=== PATIENT | female | born 1955 | race Caucasian/White ===

== ENCOUNTER → 2016-08-23 | Outpatient (CLI) | payer BC ==
[2016-08-23 09:37] LABS: BASOPHILS PERCENT AUTO 0.9 % (0.2-1.2); HEMATOCRIT 37.1 % (33.0-47.0); HEMOGLOBIN 12.5 g/dL (12.0-16.0); LYMPHOCYTES PERCENT AUTO 40.8 % (25.0-50.0); MEAN CORPUSCULAR HGB CONC 33.7 g/dL (32.0-36.0); MEAN CORPUSCULAR VOLUME 83.2 fL (78.0-93.0); MONOCYTES PERCENT AUTO 7.2 % (2.0-11.0); NEUTROPHILS PERCENT AUTO 48.1 % (50.0-80.0); RDW CV 14.9 % (10.0-15.0); RED BLOOD CELL COUNT 4.46 x10^6/uL (4.00-5.50)
[2016-08-23 09:51] LABS: HEMOGLOBIN A1C 7.2 % (4.5-6.2)
[2016-08-23 09:53] LABS: CALCIUM 8.7 mg/dL (8.5-10.1); CHLORIDE,CL 100 mmol/L (98-107); CHOLESTEROL HDL 56 mg/dL (40-59); CHOLESTEROL LDL CALCULATED 113 mg/dL (0-130); CREATININE 0.7 mg/dL (0.55-1.02); EST CRCL DRUG DOSING (CG) 74.72 mL/min; ESTIMATED GFR > 60; GLUCOSE RANDOM 156 mg/dL (74-106); TRIGLYCERIDES 186 mg/dL (0-149)
== END ==
LOC: VM.LAB 09:17
PROVIDERS: ATTEND Internal Medicine
DX: E11.9 Type 2 diabetes mellitus without complications (principal)
CPT/HCPCS: 36415; 80048; 80061; 83036; 85025

== ENCOUNTER 2020-04-22 06:48 | Day surgery (SDC) | payer BC, OTHER ==
[~2020-04-22 06:48] MED LIST: Lactated Ringers 1,000 ML IV SCH
[2020-04-22] MEDS ORDERED: Dexamethasone 10 MG/ML SDV ONE (08:02)
[2020-04-22] MEDS ORDERED: Ondansetron 4 MG/2 ML SDV ONE (08:02)
[2020-04-22] MEDS ORDERED: fentaNYL 100 MCG/2 ML SDV ONE (08:02)
[2020-04-22] MEDS ORDERED: Propofol 200 MG/20 ML SDV ONE ×2 (08:02→09:27)
[2020-04-22 09:59] VITALS: PULSE 66
[2020-04-22 10:08] VITALS: BP 117/67
--- NOTE | 2020-04-22 12:20 | OR ---
PRE-OPERATIVE DIAGNOSES: 1. Positive Cologuard stool test. 2. Positive family history of colon cancer in 2 maternal aunts. The patient's last colonoscopy was about 7 years ago. POST-OPERATIVE DIAGNOSES: 1. 2 mm polyp at 80 cm removed with cold forceps. 2. Somewhat tortuous colon, mostly obtaining entry to the cecum, but was able to eventually obtain cecal intubation and cecum was normal in appearance. 3. Moderate left-sided diverticulosis. 4. Mild hemorrhoids. PROCEDURE: Colonoscopy with polypectomy x1 using cold forceps. SURGEON: Clement Rivera M.D. ANESTHESIA: Monitored anesthesia care. BOWEL PREP: Good. DESCRIPTION OF PROCEDURE: Jessica is a 64-year-old female who was brought to the endoscopy suite after discussing risks and benefits of the procedure. Informed consent was obtained for conscious sedation and colonoscopy with or without biopsy and/or polypectomy. We also discussed possibility of missed lesions. Pre-procedure exam was unremarkable. IV, oxygen, and monitors were placed. The patient was placed in the left lateral decubitus position. Sedation was administered and a rectal exam performed and unremarkable. Colonoscope was passed into the rectum and slowly advanced all the way to the cecum. Cecum was viewed and photographed. The colonoscope was slowly withdrawn and the mucosa was closed observed in a direct circumferential manner. The ascending colon revealed a 2 mm polyp at 80 cm removed with cold forceps. Transverse colon unremarkable. The descending and sigmoid colon were remarkable for moderate diverticulosis. Retroflexion was performed. Rectal mucosa revealed some mild hemorrhoids. Scope was removed. The patient tolerated the procedure well. The patient was monitored until that baseline status. Discharge instructions were reviewed and the patient was discharged in good condition. COMPLICATIONS: None. TOTAL TIME: 30 minutes. ESTIMATED BLOOD LOSS: Less than 1 mL. RECOMMENDATIONS/FOLLOW-UP: We will await results of path report to determine ideal followup interval. I would like to kindly thank Dr. Eva Castellano for this referral. DMB: 04/22/2020 11:08:30 MODL: 04/22/2020 12:09:43 /[id number]
== END 2020-04-22 11:04 | disposition home or self-care (01) ==
LOC: VM.SDS 06:48
PROVIDERS: ATTEND Family Medicine
DX: D12.2 Benign neoplasm of ascending colon (principal); K57.30 Diverticulosis of large intestine without perforation or abscess without bleeding; K64.9 Unspecified hemorrhoids; Q43.8 Other specified congenital malformations of intestine; I10 Essential (primary) hypertension; G47.33 Obstructive sleep apnea (adult) (pediatric); M85.80 Other specified disorders of bone density and structure, unspecified site; E11.40 Type 2 diabetes mellitus with diabetic neuropathy, unspecified; E78.5 Hyperlipidemia, unspecified; E78.00 Pure hypercholesterolemia, unspecified; K21.9 Gastro-esophageal reflux disease without esophagitis; E78.1 Pure hyperglyceridemia; Z79.84 Long term (current) use of oral hypoglycemic drugs; Z79.82 Long term (current) use of aspirin; Z88.2 Allergy status to sulfonamides; Z88.5 Allergy status to narcotic agent; Z88.1 Allergy status to other antibiotic agents; Z88.8 Allergy status to other drugs, medicaments and biological substances; Z79.899 Other long term (current) drug therapy; Z20.828 Contact with and (suspected) exposure to other viral communicable diseases
CPT/HCPCS: 45380; 82962; 87635; J1100; J2405; J2704; J3010; J7120; 00811; U0002

== ENCOUNTER 2021-07-28 00:30 | Inpatient (IN) | payer BC ==
[2021-07-28] MEDS ORDERED: EPINEPHrine 1 MG/1 ML Amp IM ONE ×2 (00:40→03:59)
[2021-07-28] MEDS ORDERED: methylPREDNISolone Sodium Succinate 125 MG/2 ML SDV ONE (00:45)
[2021-07-28] MEDS ORDERED: Sodium Chloride 0.9% 1,000 ML IV ONE ×3 (00:48→00:57)
[2021-07-28] MEDS ORDERED: methylPREDNISolone Sodium Succinate 125 MG/2 ML SDV IVPUSH ONE (00:56)
[2021-07-28] MEDS ORDERED: Famotidine 20 MG/2 ML SDV IVPUSH ONE (00:57)
[2021-07-28] MEDS ORDERED: Albuterol 0.083% 2.5 MG/3 ML Neb Soln NEB ONE (00:57)
[2021-07-28] MEDS ORDERED: Lactated Ringers 1,000 ML IV ONE (00:57)
[2021-07-28] MEDS ORDERED: Sodium Chloride 0.9% 10 ML Syringe FLUSH PRN (00:59)
[2021-07-28] MEDS ORDERED: diphenhydrAMINE 50 MG/ML SDV IVPUSH ONE ×2 (01:01→01:05)
[2021-07-28] MEDS ORDERED: Sodium Chloride 0.9% 1,000 ML IV SCH (01:05)
[2021-07-28] MEDS ORDERED: Ondansetron 4 MG/2 ML SDV IV ONE (01:08)
[2021-07-28 01:45] LABS: CHLORIDE,CL 104 mmol/L (98-107); SODIUM,NA 139 mmol/L (136-145)
[2021-07-28 01:51] LABS: ANION GAP 20.4 mmol/L (5-15)
[2021-07-28 01:53] LABS: PTT,PARTIAL THROMBOPLSTIN TIME 22.5 SEC (25.6-32.8)
[2021-07-28] MEDS ORDERED: Potassium Chloride Riders 10 MEQ in Premix Bag 1 BAG IV ONE ×2 (02:15→03:40)
--- NOTE | 2021-07-28 02:25 | EDM.PDOC ---
ED HPI GENERAL MEDICAL PROBLEM - General Chief Complaint: General Stated Complaint: Hives, anaphylactic shock Time Seen by Provider: 07/28/21 00:45 Source of Information: Reports: Patient History Limitations: Reports: No Limitations - History of Present Illness INITIAL COMMENTS - FREE TEXT/NARRATIVE: Patient comes emergency department today from home by ambulance with concerns of allergic reaction. The patient approximately 24 hours ago had some hives developed at home. She had taken some Benadryl with resolution. It is not uncommon for her over the past couple years to have some breakthrough hives on a regular basis. The only new medication that she has started tried or been exposed to is been Pepto-Bismol as she has had quite a bit of diarrhea over the past few days. She is currently taking care of her grandson who has Covid. She has not had any fever or chills. She did have a almost syncopal episode in the ambulance. She was noted to be quite hypotensive. She was given subcu epinephrine 0.5 mg prior to arrival. She was brought here urgently by ambulance with concerns of anaphylaxis. Upon arrival the patient is alert anxious. She denies any shortness of breath or difficulty breathing. But she is unable to control her shaking. She is itching quite extensively. She has no chest pain. She is complaint of nausea and vomiting. Treatments PROJECT LANDSCAPE ARCHITECT: Reports: IV/IO, Other (see below) Other Treatments PROJECT LANDSCAPE ARCHITECT: EPI, Zofran, Benadryl per EMS - Related Data Allergies Allergy/AdvReac Type Severity Reaction Status Date / Time bismuth subsalicylate Allergy Severe Anaphylactic Verified 07/28/21 08:32 [From Pepto-Bismol] Shock loperamide [From Imodium A-D] Allergy Severe Hives Verified 07/28/21 02:12 doxycycline Allergy Rash Verified 07/28/21 02:12 Sulfa (Sulfonamide Allergy Rash Verified 07/28/21 02:12 Antibiotics) codeine AdvReac Vomiting Verified 07/28/21 02:12 propoxyphene napsylate AdvReac Vomiting Verified 07/28/21 02:12 [From Darvocet-N] Home Meds: Home Meds Aspirin [Mark Chewable] 81 mg PO DAILY 11/21/14 [History] Lisinopril 5 mg PO DAILY 11/21/14 [History] Potassium Gluconate 595 mg PO DAILY 11/21/14 [History] Pravastatin [Pravachol] 10 mg PO BEDTIME 11/21/14 [History] hydroCHLOROthiazide [Hydrochlorothiazide] 12.5 mg PO DAILY 11/21/14 [History] metFORMIN HCl [Metformin HCl] 1,000 mg PO BID 11/21/14 [History] Calcium Carbonate [Calcium] 600 mg PO DAILY 08/01/16 [History] Cyclobenzaprine [Flexeril] 10 mg PO TID PRN 04/14/20 [History] Famotidine [Pepcid] 10 mg PO ASDIRECTED PRN 04/14/20 [History] Omeprazole 20 mg PO DAILY 04/14/20 [History] Empagliflozin [Jardiance] 25 mg PO DAILY 07/28/21 [History] Levothyroxine Sodium [Synthroid] 50 mcg PO BEDTIME 07/28/21 [History] Non-Formulary Medication [NF Drug] 1 spray .XX DAILY 07/28/21 [History] Semaglutide [Rybelsus] 7 mg PO ACBREAKFAST 07/28/21 [History] Past Medical History HEENT History: Reports: Sinusitis Cardiovascular History: Reports: High Cholesterol, Hypertension Respiratory History: Reports: Sleep Apnea Gastrointestinal History: Reports: GERD Other Gastrointestinal History: c diff Other Genitourinary History: cystitis Musculoskeletal History: Reports: Back Pain, Chronic Other Musculoskeletal History: osteopenia. planter fasciitis of left foot Endocrine/Metabolic History: Reports: Diabetes, Type II - Infectious Disease History Infectious Disease History: Reports: C-Difficile - Past Surgical History HEENT Surgical History: Reports: Adenoidectomy, Tonsillectomy Other Female Surgeries/Procedures: colposcopy with endo curette Social & Family History - Family History Cardiac: Reports: Bypass, Heart Valve Replacement, High Cholesterol, Hypertension, MD ED ROS GENERAL - Review of Systems Review Of Systems: Comprehensive ROS is negative, except as noted in HPI. ED EXAM, GENERAL - Physical Exam Exam: See Below Free Text/Narrative:: Upon arrival the patient is in extremis. She is anxious. She is shaking uncontrollably. She is profusely diaphoretic. She is covered in hives head to toe. She has some nonblanching flat purpura/purple coloring to her hands bilaterally on the distal tips of pretty much all her fingers more on the left than the right. Exam Limited By: No Limitations General Appearance: Severe Distress Eye Exam: Bilateral Eye: EOMI Ears: Normal External Exam Nose: Normal Inspection Throat/Mouth: Normal Inspection (There is no rash or discoloration inside the oropharynx. There is no swelling of the tongue. There is no stridor. Her lips are not swollen.), Normal Lips Head: Atraumatic, Normocephalic Neck: Normal Inspection, Supple, Non-Tender Respiratory/Chest: No Respiratory Distress, Lungs Clear, Normal Breath Sounds, No Accessory Muscle Use, Chest Non-Tender Cardiovascular: Normal Peripheral Pulses, Regular Rate, Rhythm, Tachycardia Peripheral Pulses: 1+: Brachial (L), Brachial (R), Femoral (L), Femoral (R) GI/Abdominal: Normal Bowel Sounds, Soft (Female) Exam: Deferred Rectal (Female) Exam: Deferred Back Exam: Normal Inspection Extremities: No: Normal Inspection (She is covered head to toe and hives that are confluent. She has purpling/purpura nonblanching of her fingers of her hands. She has weak peripheral pulses. She is profusely diaphoretic), Normal Capillary Refill (Her cap refill is at about 6 seconds) Neurological: Alert, Oriented Psychiatric: Anxious Skin Exam: Cool, Diaphoretic, Rash (Hives as above) Course - Vital Signs Last Recorded V/S: Last Vital Signs Temp 98.8 F 07/28/21 18:00 Pulse 86 07/28/21 18:00 Resp 20 07/28/21 18:00 BP 96/49 L 07/28/21 18:00 Pulse Ox 97 07/28/21 18:00 - Orders/Labs/Meds Orders: Active Orders 24 hr Category Date Time Status Patient Status [ADT] Routine ADT 07/28/21 02:07 Active RT Aerosol Therapy [RC] .PRN Care 07/28/21 00:57 Active Sodium Chloride 0.9% [Saline Flush] Med 07/28/21 00:59 Active 10 ml FLUSH ASDIRECTED PRN Peripheral IV Insertion Adult [OM.PC] Stat Oth 07/28/21 00:59 Ordered Medication Orders Aspirin (Aspirin 81 Mg Tab.Chew) 81 mg PO DAILY SURESH Last Admin: 07/28/21 08:41 Dose: 81 mg Documented by: SARTHAK Calcium Carbonate/Glycine (Calcium Carbonate 750 Mg Tab.Chew) 600 mg PO DAILY [facility] Last Admin: 07/28/21 08:43 Dose: 600 mg Documented by: SARTHAK Cyclobenzaprine HCl (Cyclobenzaprine 10 Mg Tab) 10 mg PO TID PRN PRN Reason: Muscle Spasm - Painful Dextrose/Water (50% Dextrose In Water 50 Ml Syringe) 50 ml IVPUSH ASDIRECTED PRN PRN Reason: Hypoglycemia Diphenhydramine HCl (Diphenhydramine 50 Mg/Ml Sdv) 25 mg IVPUSH Q4H PRN PRN Reason: Rash Last Admin: 07/28/21 07:11 Dose: 25 mg Documented by: SABRA Enoxaparin Sodium (Enoxaparin 40 Mg/0.4 Ml Syringe) 40 mg SUBCUT Q24H [facility] Epinephrine HCl (Epinephrine 1 Mg/1 Ml Amp) 0.3 mg IM ONETIME PRN PRN Reason: Other Famotidine (Famotidine 20 Mg/2 Ml Sdv) 20 mg IVPUSH DAILY [facility] Last Admin: 07/28/21 08:40 Dose: 20 mg Documented by: SARTHAK Glucagon (Glucagon,Human Recombinant 1 Mg Vial) 1 mg IM ASDIRECTED PRN PRN Reason: Hypoglycemia Insulin Human Lispro (Insulin Lispro 100 Units/Ml 3 Ml Vial) 5 unit SUBCUT TIDMEALS [facility] Last Admin: 07/28/21 12:23 Dose: Not Given Documented by: SARTHAK Levothyroxine Sodium (Levothyroxine 25 Mcg Tab) 50 mcg PO BEDTIME [facility] Lisinopril (Lisinopril 10 Mg Tab) 5 mg PO DAILY [facility] Last Admin: 07/28/21 08:42 Dose: 5 mg Documented by: SARTHAK Omeprazole (Omeprazole 20 Mg Cap.Cr) 20 mg PO DAILY [facility] Last Admin: 07/28/21 08:41 Dose: 20 mg Documented by: SARTHAK Ondansetron HCl (Ondansetron 4 Mg/2 Ml Sdv) 4 mg IV Q6H PRN PRN Reason: Nausea/Vomiting Potassium Chloride (Potassium Chloride 10 Meq Tab.Er) 20 meq PO WITHBREAKFAST [facility] Last Admin: 07/28/21 12:22 Dose: 20 meq Documented by: SARTHAK Pravastatin Sodium (Pravastatin 20 Mg Tab) 10 mg PO BEDTIME [facility] Sodium Chloride (Sodium Chloride 0.9% 10 Ml Syringe) 10 ml FLUSH ASDIRECTED PRN PRN Reason: Keep Vein Open Labs: Laboratory Tests 07/28/21 07/28/21 07/28/21 Range/Units 01:19 01:19 01:19 WBC 26.7 H* (4.0-10.0) x10^3/uL RBC 5.01 (4.00-5.50) x10^6/uL Hgb 13.9 (12.0-16.0) g/dL Hct 43.0 (33.0-47.0) % MCV 85.8 (78.0-93.0) fL MCH 27.7 (26.0-32.0) pg MCHC 32.3 (32.0-36.0) g/dL RDW Coeff of Yaw 14.9 (10.0-15.0) % Plt Count 320 (130-400) x10^3/uL Add Manual Diff Yes Neutrophils % (Manual) 45 L (50-80) % Band Neutrophils % 10 H (0-6) % Lymphocytes % (Manual) 14 L (25-50) % Reactive Lymphs % 21 H (0) % Monocytes % (Manual) 5 (2-11) % Eosinophils % (Manual) 4 (0-4) % Metamyelocytes % 1 H (0) % Immature Gran # 0.27 H (0.00-0.07) X10^3/Ul Absolute Neutrophils 14.7 H (1.8-7.7) x10^3/uL Lymphocytes # (Manual) 9.3 H (1.0-4.8) x10^3/uL Monocytes # (Manual) 1.3 H (0.0-0.8) x10^3/uL Eosinophils # (Manual) 1.1 H (0.0-0.5) x10^3/uL Vacuolated Neuts Rare Toxic Granulation 1+ slight H Platelet Estimate Adequate PT 12.9 H (9.9-12.5) SEC INR 1.2 L (2.0-3.5) APTT 22.5 L (25.6-32.8) SEC Sodium (136-145) mmol/L Potassium (3.5-5.1) mmol/L Chloride (98-107) mmol/L Carbon Dioxide (21-32) mmol/L Anion Gap (5-15) mmol/L BUN (7-18) mg/dL Creatinine (0.55-1.02) mg/dL Est Cr Clr Drug Dosing Estimated GFR (MDRD) Glucose (70-99) mg/dL Lactic Acid (0.4-2.0) mmol/L Calcium (8.5-10.1) mg/dL Corrected Calcium (8.5-10.1) mg/dL Magnesium (1.8-2.4) mg/dL Total Bilirubin (0.2-1.0) mg/dL AST (15-37) U/L ALT (14-59) U/L Alkaline Phosphatase (46-116) U/L C-Reactive Protein (<=0.9) mg/dL Total Protein (6.4-8.2) g/dL Albumin (3.4-5.0) g/dL Globulin Albumin/Globulin Ratio SARS CoV-2 RNA Rapid RK Negative (NEGATIVE) 07/28/21 07/28/21 Range/Units 01:19 01:19 WBC (4.0-10.0) x10^3/uL RBC (4.00-5.50) x10^6/uL Hgb (12.0-16.0) g/dL Hct (33.0-47.0) % MCV (78.0-93.0) fL MCH (26.0-32.0) pg MCHC (32.0-36.0) g/dL RDW Coeff of Yaw (10.0-15.0) % Plt Count (130-400) x10^3/uL Add Manual Diff Neutrophils % (Manual) (50-80) % Band Neutrophils % (0-6) % Lymphocytes % (Manual) (25-50) % Reactive Lymphs % (0) % Monocytes % (Manual) (2-11) % Eosinophils % (Manual) (0-4) % Metamyelocytes % (0) % Immature Gran # (0.00-0.07) X10^3/Ul Absolute Neutrophils (1.8-7.7) x10^3/uL Lymphocytes # (Manual) (1.0-4.8) x10^3/uL Monocytes # (Manual) (0.0-0.8) x10^3/uL Eosinophils # (Manual) (0.0-0.5) x10^3/uL Vacuolated Neuts Toxic Granulation Platelet Estimate PT (9.9-12.5) SEC INR (2.0-3.5) APTT (25.6-32.8) SEC Sodium 139 (136-145) mmol/L Potassium 2.4 L* D (3.5-5.1) mmol/L Chloride 104 (98-107) mmol/L Carbon Dioxide 17 L D (21-32) mmol/L Anion Gap 20.4 H (5-15) mmol/L BUN 21 H (7-18) mg/dL Creatinine 1.0 (0.55-1.02) mg/dL Est Cr Clr Drug Dosing TNP Estimated GFR (MDRD) 56 Glucose 324 H (70-99) mg/dL Lactic Acid 7.2 H* (0.4-2.0) mmol/L Calcium 6.5 L* D (8.5-10.1) mg/dL Corrected Calcium 7.9 L D (8.5-10.1) mg/dL Magnesium 1.5 L (1.8-2.4) mg/dL Total Bilirubin 0.5 (0.2-1.0) mg/dL AST 19 (15-37) U/L ALT 30 (14-59) U/L Alkaline Phosphatase 40 L (46-116) U/L C-Reactive Protein 0.8 (<=0.9) mg/dL Total Protein 4.2 L (6.4-8.2) g/dL Albumin 2.3 L (3.4-5.0) g/dL Globulin 1.9 Albumin/Globulin Ratio 1.21 SARS CoV-2 RNA Rapid RK (NEGATIVE) Meds: Medications Generic Name Dose Route Start Last Admin Trade Name Freq PRN Reason Stop Dose Admin Aspirin 81 mg 07/28/21 08:00 07/28/21 08:41 Aspirin 81 Mg Tab.Chew PO 81 mg DAILY SURESH Administration Calcium Carbonate/Glycine 600 mg 07/28/21 08:00 07/28/21 08:43 Calcium Carbonate 750 Mg Tab.Chew PO 600 mg DAILY SURESH Administration Cyclobenzaprine HCl 10 mg 07/28/21 04:34 Cyclobenzaprine 10 Mg Tab PO TID PRN Muscle Spasm - Painful Dextrose/Water 50 ml 07/28/21 10:42 50% Dextrose In Water 50 Ml Syringe IVPUSH ASDIRECTED PRN Hypoglycemia Diphenhydramine HCl 25 mg 07/28/21 03:46 07/28/21 07:11 Diphenhydramine 50 Mg/Ml Sdv IVPUSH 25 mg Q4H PRN Administration Rash Enoxaparin Sodium 40 mg 07/28/21 20:00 Enoxaparin 40 Mg/0.4 Ml Syringe SUBCUT Q24H SURESH Epinephrine HCl 0.3 mg 07/28/21 03:49 Epinephrine 1 Mg/1 Ml Amp IM ONETIME PRN Other Famotidine 20 mg 07/28/21 08:00 07/28/21 08:40 Famotidine 20 Mg/2 Ml Sdv IVPUSH 20 mg DAILY SURESH Administration Glucagon 1 mg 07/28/21 10:42 Glucagon,Human Recombinant 1 Mg Vial IM ASDIRECTED PRN Hypoglycemia Insulin Human Lispro 5 unit 07/28/21 12:00 07/28/21 12:23 Insulin Lispro 100 Units/Ml 3 Ml Vial SUBCUT Not Given TIDMEALS SURESH Levothyroxine Sodium 50 mcg 07/28/21 20:00 Levothyroxine 25 Mcg Tab PO BEDTIME SURESH Lisinopril 5 mg 07/28/21 08:00 07/28/21 08:42 Lisinopril 10 Mg Tab PO 5 mg DAILY SURES[facility] Administration Omeprazole 20 mg 07/28/21 08:00 07/28/21 08:41 Omeprazole 20 Mg Cap.Cr PO 20 mg DAILY SURES[facility] Administration Ondansetron HCl 4 mg 07/28/21 03:41 Ondansetron 4 Mg/2 Ml Sdv IV Q6H PRN Nausea/Vomiting Potassium Chloride 20 meq 07/28/21 11:30 07/28/21 12:22 Potassium Chloride 10 Meq Tab.Er PO 20 meq WITHBREAKFAST SURESH Administration Pravastatin Sodium 10 mg 07/28/21 20:00 Pravastatin 20 Mg Tab PO BEDTIME SURES[facility] Sodium Chloride 10 ml 07/28/21 00:59 Sodium Chloride 0.9% 10 Ml Syringe FLUSH ASDIRECTED PRN Keep Vein Open Discontinued Medications Generic Name Dose Route Start Last Admin Trade Name Freq PRN Reason Stop Dose Admin Albuterol 2.5 mg 07/28/21 00:57 07/28/21 01:20 Albuterol 0.083% 2.5 Mg/3 Ml Neb Soln NEB 07/28/21 00:58 2.5 mg ONETIME ONE Administration Diphenhydramine HCl 25 mg 07/28/21 01:01 Diphenhydramine 50 Mg/Ml Sdv IVPUSH 07/28/21 01:02 ONETIME ONE Diphenhydramine HCl 50 mg 07/28/21 01:05 07/28/21 01:11 Diphenhydramine 50 Mg/Ml Sdv IVPUSH 07/28/21 01:06 50 mg ONETIME ONE Administration Epinephrine HCl 0.5 mg 07/28/21 00:40 07/28/21 00:42 Epinephrine 1 Mg/1 Ml Amp IM 07/28/21 00:41 0.5 mg ONETIME ONE Administration Epinephrine HCl 0.3 mg 07/28/21 03:59 07/28/21 04:06 Epinephrine 1 Mg/1 Ml Amp IM 07/28/21 04:00 0.3 mg ONETIME ONE Administration Famotidine 20 mg 07/28/21 00:57 07/28/21 01:08 Famotidine 20 Mg/2 Ml Sdv IVPUSH 07/28/21 00:58 20 mg ONETIME ONE Administration Hydrochlorothiazide 12.5 mg 07/28/21 08:00 07/28/21 08:41 Hydrochlorothiazide 25 Mg Tab PO 12.5 mg DAILY SURESH Administration Lactated Ringer's 1,000 mls @ 999 mls/hr 07/28/21 00:57 Ringers, Lactated IV 07/28/21 01:57 ONETIME ONE Sodium Chloride 1,000 mls @ 999 mls/hr 07/28/21 00:57 07/28/21 00:40 Normal Saline IV 07/28/21 01:57 999 mls/hr ONETIME ONE Administration Potassium Chloride 10 meq/ 50 mls @ 50 mls/hr 07/28/21 02:15 07/28/21 02:45 Premix IV 07/28/21 03:14 50 mls/hr ONETIME ONE Administration Potassium Chloride 10 meq/ 50 mls @ 50 mls/hr 07/28/21 03:40 07/28/21 03:45 Premix IV 07/28/21 04:39 50 mls/hr ONETIME ONE Administration Lactated Ringer's 1,000 mls @ 75 mls/hr 07/28/21 04:00 Ringers, Lactated IV ASDIRECTED SURESH Potassium Chloride 20 meq/ 50 mls @ 50 mls/hr 07/28/21 03:52 07/28/21 05:16 Premix IV 07/28/21 04:51 50 mls/hr ONETIME ONE Administration Magnesium Sulfate 2 gm/ Premix 50 mls @ 50 mls/hr 07/28/21 03:53 07/28/21 07:14 IV 07/28/21 04:52 50 mls/hr ONETIME ONE Administration Sodium Chloride 1,000 mls @ 999 mls/hr 07/28/21 00:48 07/28/21 00:48 Normal Saline IV 07/28/21 01:48 999 mls/hr ONETIME ONE Administration Sodium Chloride 1,000 mls @ 999 mls/hr 07/28/21 00:54 07/28/21 00:54 Normal Saline IV 07/28/21 01:54 999 mls/hr ONETIME ONE Administration Sodium Chloride 1,000 mls @ 120 mls/hr 07/28/21 01:05 07/28/21 01:05 Normal Saline IV 120 mls/hr ASDIRECTED SURESH Administration Metformin HCl 1,000 mg 07/28/21 08:00 Metformin 500 Mg Tab PO BIDMEALS [facility] Methylprednisolone Sodium Succinate Confirm 07/28/21 00:45 07/28/21 00:42 Methylprednisolone Sodium Succinate 125 Mg/2 Ml Sdv Administered 07/28/21 00:46 Not Given Dose 250 mg .ROUTE .STK-MED ONE Methylprednisolone Sodium Succinate 250 mg 07/28/21 00:56 07/28/21 00:46 Methylprednisolone Sodium Succinate 125 Mg/2 Ml Sdv IVPUSH 07/28/21 00:57 250 mg ONETIME ONE Administration Methylprednisolone Sodium Succinate 125 mg 07/28/21 04:00 Methylprednisolone Sodium Succinate 125 Mg/2 Ml Sdv IVPUSH Q6H [facility]URES[facility] Methylprednisolone Sodium Succinate 125 mg 07/28/21 07:00 07/28/21 06:27 Methylprednisolone Sodium Succinate 125 Mg/2 Ml Sdv IVPUSH 125 mg Q6H SURES[facility] Administration Semaglutide [ 0 mg 07/28/21 07:00 Rybelsus] 7 Mg PO Tablet (Own Supply) ACBREAKFAST [facility] Non-Formulary Medication 595 mg 07/28/21 08:00 Potassium Gluconate [Potassium Gluconate] PO DAILY [facility] Ondansetron HCl 4 mg 07/28/21 01:08 07/28/21 01:10 Ondansetron 4 Mg/2 Ml Sdv IV 07/28/21 01:09 Not Given ONETIME ONE - Re-Assessments/Exams Free Text/Narrative Re-Assessment/Exam: This patient is clearly in severe anaphylactic shock. Her blood pressure when I enter the room is 52/25. She is alert appropriate and maintaining her airway without stridor or respiratory distress. Epinephrine 0.5 mg IM immediately. Epinephrine drip was prepared and at bedside. Solu-Medrol 250 mg IV push. Famotidine, Benadryl Fluid bolus initiated approximately 3 L. The patient's blood pressure did improve after the epinephrine and the fluid boluses. It did take quite some time for the hives to improve. Eventually the purple nonblanching aspect of her hands has resolved. She was monitored closely in the emergency department. I did call and speak with Dr. Brian Betancourt at [place] with the concerns of sever anaphylactic shock. She has not been on anti-biotics recently so the risk of Miko Hines is not of high concerns. No other guidance for care at this time although he does recommend that she is observed in the hospital for at minimum of 2 days to ensure that her life threatening anaphylactic shock does not reoccur. The patient is quite hypokalemic as well as hypomagnesemic which could be an aspect of her diarrhea. She was replaced through the IV. I did call and speak with Dr. Grider who is driver's education instructor for the hospital. HPI ER COURSE findings and concerns were relayed to her verbally over the phone. She accepted the patient in admission and I will place admission orders. The patient's blood pressures stabilized after the above therapy rather quickly. Although she was observed in the emergency department for an extended period of time to ensure that she does not have recurrence of her severe anaphylactic shock. She did have recurrence of her hives and she was given a second dose in the emergency department for a total of 3 doses of epinephrine during her anaphylactic shock. Her hives did resolve. We will place her into the hospital for further care and management. She is understanding this and her questions are answered. 07/28/21 20:06 Departure - Departure Time of Disposition: 02:20 Disposition: Admitted As Inpatient 67 Clinical Impression: Anaphylactic shock, Hypokalemia, Hypomagnesemia, Hypocalcemia - Discharge Information Sepsis Event Note (ED) - Evaluation Sepsis Screening Result: No Definite Risk - My Orders Last 24 Hours: My Active Orders 07/28/21 00:57 RT Aerosol Therapy [RC] .PRN 07/28/21 00:59 Sodium Chloride 0.9% [Saline Flush] 10 ml FLUSH ASDIRECTED PRN Peripheral IV Insertion Adult [OM.PC] Stat 07/28/21 02:07 Patient Status [ADT] Routine - Assessment/Plan Last 24 Hours: My Active Orders 07/28/21 00:57 RT Aerosol Therapy [RC] .PRN 07/28/21 00:59 Sodium Chloride 0.9% [Saline Flush] 10 ml FLUSH ASDIRECTED PRN Peripheral IV Insertion Adult [OM.PC] Stat 07/28/21 02:07 Patient Status [ADT] Routine Assessment:: Patient will be admitted to inpatient services and most likely will be taken over by her primary care provider in the morning Dr. Eva Castellano. 1. Anaphylactic shock, shock state resolving anaphylaxis still present question if from Pepto-Bismol or other cause. 0.5 mg epinephrine IM x1 immediately upon recognition of hypotension bronchospasms or worsening anaphylaxis then contact ER provider plus attending. Solu-Medrol 125 mg every 6 hours. Famotidine 20 mg daily. Benadryl 25 mg every 4 hours as needed rash. 2. diarrhea unknown cause Covid test negative. No recent travel, no recent antibiotic therapy. Attending to consider stool cultures and following. 3. Hypokalemia 2/2 #2 Potassium 2.4. EKG completed in the emergency department Received 20 mEq IV piggyback in the emergency department. 20 mEq ordered for the floor. Follow closely. Telemetry #4. Hypomagnesemia 2/2 2-3 1.5 2 grams IVPB ordered repeat lab and follow. 5. Lactic acidosis 7.2 most likely due to the hypoperfusion of the severe anaphylactic shock follow. 6. Hypocalcemia Corrected calcium 7.9. Follow. Chronic medications continued. We will add 4 times daily glucose checks due to the risk of severe hyperglycemia in a diabetic patient on high-dose steroids IV push. VTE: Bryan score low risk teds bilaterally. Sepsis: She does have a quite elevated white blood cell count of 26.7, elevated lactic 7.2 Code Status: Full Code. These are orders for initial admission into the hospital. Dr. Grider is aware of the patients admission and either Dr. Grider or Dr. Nereyda Castellano will assume care of this patient in the morning.
[2021-07-28] MEDS ORDERED: Ondansetron 4 MG/2 ML SDV IV PRN (03:41)
[2021-07-28] MEDS ORDERED: EPINEPHrine 1 MG/1 ML Amp IM PRN (03:49)
[2021-07-28] MEDS ORDERED: Potassium Chloride Riders 20 MEQ in Premix Bag 1 BAG IV ONE (03:52)
[2021-07-28] MEDS ORDERED: Magnesium Sulfate/Water 2 GM in Premix Bag 1 BAG IV ONE (03:53)
[2021-07-28] MEDS ORDERED: Lactated Ringers 1,000 ML IV SCH (04:00)
[2021-07-28] MEDS ORDERED: methylPREDNISolone Sodium Succinate 125 MG/2 ML SDV IVPUSH SCH ×2 (04:00→07:00)
[2021-07-28] MEDS ORDERED: Cyclobenzaprine 10 MG Tab PO PRN (04:34)
[2021-07-28] MEDS ORDERED: SEMAGLUTIDE 7 MG PO SCH (07:00)
[2021-07-28] MEDS: diphenhydrAMINE 50 MG/ML SDV IVPUSH PRN ×2 (07:11→21:07)
[2021-07-28 07:28] LABS: ANION GAP 19.5 mmol/L (5-15)
[2021-07-28] MEDS ORDERED: POTASSIUM GLUCONATE 500 MG PO SCH (08:00)
[2021-07-28] MEDS ORDERED: Hydrochlorothiazide 25 MG Tab PO SCH (08:00)
[2021-07-28] MEDS ORDERED: metFORMIN 500 MG Tab PO SCH (08:00)
[2021-07-28] MEDS: Famotidine 20 MG/2 ML SDV IVPUSH SCH (08:40)
[2021-07-28] MEDS: Omeprazole 20 MG Cap.CR PO SCH (08:41)
[2021-07-28] MEDS: Aspirin 81 MG Tab.Chew PO SCH (08:41)
[2021-07-28] MEDS: Lisinopril 10 MG Tab PO SCH (08:42)
[2021-07-28] MEDS: Calcium Carbonate 750 MG Tab.Chew PO SCH (08:43)
[2021-07-28] MEDS ORDERED: Glucagon,Human Recombinant 1 MG Vial IM PRN (10:42)
[2021-07-28] MEDS ORDERED: 50% Dextrose in Water 50 ML Syringe IVPUSH PRN (10:42)
[2021-07-28] MEDS: Empagliflozin 25 MG Tab PO SCH (12:22)
[2021-07-28] MEDS: Potassium Chloride 10 MEQ Tab.ER PO SCH (12:22)
[2021-07-28] MEDS: Insulin Lispro 100 Units/ML 3 ML Vial SUBCUT SCH ×2 (12:23→21:00)
[2021-07-28 15:28] LABS: CHLORIDE,CL 101 mmol/L (98-107); SODIUM,NA 134 mmol/L (136-145)
[2021-07-28 15:31] LABS: ANION GAP 14.7 mmol/L (5-15)
[2021-07-28] MEDS ORDERED: Pravastatin 20 MG Tab PO SCH (20:00)
[2021-07-28] MEDS ORDERED: Levothyroxine 25 MCG Tab PO SCH (20:00)
[2021-07-28] MEDS ORDERED: Enoxaparin 40 MG/0.4 ML Syringe SUBCUT SCH (20:00)
--- NOTE | 2021-07-28 20:33 | HP ---
CHIEF COMPLAINT: Anaphylactic shock. HISTORY OF PRESENT ILLNESS: This 65-year-old female, who started getting hives while at home last evening. She has previously had some hives, but never anaphylaxis and she took Benadryl, but her symptoms were getting worse, so all within about an hour, her wanted to bring her into the ER. She felt she was fine, then she went to the bathroom and felt like she might black out and when she arrived in the ER, blood pressure was low at 69/46 and she was actually having some signs of shock. She told me herself her arms were turning purple. She responded eventually to IV Benadryl 25 mg, epinephrine 0.5 IM immediately and then a repeat 0.3 dose later at around 4 a.m., Pepcid. Her potassium was low at 2.4. She got potassium replacement. She got fluid boluses with lactated Ringer's. She got IV magnesium. She got Solu-Medrol 125 IV push and required repeat epinephrine. She also had hypocalcemia. The patient then did stabilize. She continues to have hives, but otherwise her blood pressure has been excellent. She had been having some diarrhea, which she calls like a dumping syndrome since she had her gallbladder removed and it had been her normal, like maybe 3 more formed type stools the day before, but then last night she just had a severe diarrhea. She had been exposed to her grandson, who came Sunday, was not sick, but Sunday had a headache, and then Sunday diarrhea and vomiting and eventually did have a positive COVID test and Jessica herself has been vaccinated and has had several COVID tests including a negative one yesterday. She also threw up a couple of times. Her only known exposure was she took a Pepto-Bismol about 24 hours before this event; and she had also newly been started on Rybelsus, back in April when it was ordered and it just causes an upset stomach at times for her, but she was on injectable medications like Trulicity and Victoza previously. ALLERGIES: Do include Imodium, hives; codeine, nausea and vomiting; Darvon, nausea and vomiting; doxycycline causes a rash; sulfa causes a rash. MEDICATION LIST: Includes Synthroid 50 mcg daily, Rybelsus 7 mg daily, metformin 1000 twice daily, hydrochlorothiazide 12.5 daily, Flexeril 10 mg t.i.d. p.r.n., Pravachol 10 mg at bedtime, lisinopril 5 mg daily, Jardiance 25 mg daily, Prilosec 20 mg daily, potassium 595 over the counter daily, Nasacort nasal spray, probiotics daily, calcium and vitamin D, aspirin 81 mg daily, Pepcid 1 time a day as needed for heartburn. MEDICAL HISTORY: Does include a history of C difficile. The patient had not been on any recent antibiotics and does not think her diarrhea was C difficile. The patient otherwise had shingles last August. She also has type 2 diabetes, which is controlled without long-term complications. She has GERD, hyperlipidemia, essential hypertension, hypertriglyceridemia, sleep apnea on CPAP, chronic sinusitis, history of symptomatic cholelithiasis status post cholecystectomy. SURGICAL HISTORY: She had her tonsils and adenoids, laparoscopic cholecystectomy, colposcopies with D and C. 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 She is . She has 3 children. She is a nonsmoker. FAMILY HISTORY: Father has had heart disease; he has had bypass surgery. Mother has had hypertension. REVIEW OF SYSTEMS: General: The patient had generally been feeling well. She has had previous episodes of hives, but had not frequently had them. She had not had any major weight changes. No fever. No chills. HEENT: She is not having any sore throat, but has had some lip swelling. Respiratory: Currently, she is not having any cough or shortness of breath. Cardiac: No chest pain. Otherwise, all systems reviewed and found to be negative unless otherwise stated in HPI. PHYSICAL EXAMINATION: Vital Signs: On rounds this morning, her weight is 76.6 kg. Her temperature 97.8, pulse 105, blood pressure 118/56, respiratory rate 18, and O2 of 95 on room air. General: She is in no acute distress. Heart: Regular rate and rhythm. S1, S2 without murmur. Lungs: Sounds are clear to auscultation bilaterally without crackles or wheezes. Abdomen: Nondistended. Positive bowel sounds. Soft, nontender. Extremities: Warm and dry. She has just a little puffiness to her fingers. Skin: She has no significant lip or tongue swelling. Her skin is really covered in hives. It seems like from what her is saying though, they might already be resolving quite a bit on her back. Mental Status: She is alert and orientated x3. LABORATORY WORK: This morning does show her sodium 134, potassium up to 3.5, chloride 101, bicarb 17, BUN 16, creatinine 1, glucose 193, lactic down to 4.5 from 7.2, corrected calcium up to 7.4. COVID testing again on admission negative. ASSESSMENT: 1. Anaphylactic shock, which has resolved. The etiology is unclear, suspected to potentially be Pepto-Bismol, potentially pink dyes. She will go home definitely with an EpiPen and a referral to Allergy. Currently, she was getting 250 of Solu-Medrol q.6 hours. She got her dose this morning. I am going to decrease this to just daily. She only needs 1 to 2 mg/kg per day, so likely tomorrow she will just get an oral dose of prednisone and hopefully return home. 2. Diarrhea, which has been a functional problem since her gallbladder was removed. She is also on metformin. I am going to hold that, especially with the elevated lactic acid. She had that even before her COVID exposure. Currently, she is not having the diarrhea this morning. We will just replace electrolytes and fluid and avoid any anti-diarrheal agents for her. 3. Hypokalemia, resolved. 4. Hypomagnesemia. We will recheck the level later today. 5. Hypocalcemia. She is on her home calcium doses of 600 daily. 6. Lactic acidosis due to anaphylactic shock. This is resolving. We will repeat later today. 7. Type 2 diabetes with hyperglycemia due to steroids. I am going to put her on some short-acting insulin with meals for blood sugars over 200. If needed, I will add Lantus; however, I suspect now that she is off steroids, her blood sugars will improve. We will continue with q.i.d. checks. 8. Obstructive sleep apnea. Her can bring in her CPAP machine if able. 9. Essential hypertension. I will stop the hydrochlorothiazide and resume on discharge. Blood pressures are under good control. She can continue her lisinopril daily. 10.For deep venous thrombosis prophylaxis, the patient will be placed on Lovenox. 11.For COVID-19 exposure, discussed with lab. We will go ahead and repeat the COVID-19 test tomorrow. She is in a modified isolation as she does not have a positive test for COVID, but has had significant exposure. PLAN: Discontinue Solu-Medrol. Continue p.r.n. Benadryl. Continue Pepcid. Continue lab monitoring. Anticipate she will be discharged home as soon as tomorrow since she is rapidly improving. MKA: 07/28/2021 16:21:51 MODL: 07/28/2021 20:29:13 /[id number]
[2021-07-29 06:47] VITALS: BP 98/50; PULSE 82
[2021-07-29 07:11] LABS: CHLORIDE,CL 102 mmol/L (98-107); SODIUM,NA 135 mmol/L (136-145)
[2021-07-29] MEDS: Aspirin 81 MG Tab.Chew PO SCH (08:04)
[2021-07-29] MEDS: Potassium Chloride 10 MEQ Tab.ER PO SCH (08:04)
[2021-07-29] MEDS: Lisinopril 10 MG Tab PO SCH (08:05)
[2021-07-29] MEDS: Omeprazole 20 MG Cap.CR PO SCH (08:05)
[2021-07-29] MEDS: Famotidine 20 MG/2 ML SDV IVPUSH SCH (08:06)
[2021-07-29] MEDS: Empagliflozin 25 MG Tab PO SCH (08:07)
[2021-07-29] MEDS: Insulin Lispro 100 Units/ML 3 ML Vial SUBCUT SCH (08:07)
[2021-07-29] MEDS: Calcium Carbonate 750 MG Tab.Chew PO SCH (08:09)
[2021-07-29] MEDS ORDERED: Potassium Chloride 20 MEQ Tab.ER PO ONE (08:33)
[2021-07-29] MEDS ORDERED: predniSONE 20 MG Tab PO ONE (08:52)
[2021-07-29] MEDS ORDERED: Calcium Carbonate 750 MG Tab.Chew PO SCH (20:00)
--- NOTE | 2021-07-29 22:37 | DISCH ---
PRIMARY DISCHARGE DIAGNOSES: 1. Anaphylactic shock, source was potentially Pepto-Bismol. 2. Diarrhea, ongoing since gallbladder surgery. The patient actually had no diarrhea during her stay here. 3. Significant COVID-19 exposure going back to 07/22; however, she continues to test negative. She has been vaccinated. She is followed by [facility]. 4. Hypokalemia, replaced orally and IV. 5. Hypomagnesemia, replaced. 6. Hypocalcemia, on calcium at home. 7. Lactic acidosis due to the anaphylactic shock, resolving. 8. Type 2 diabetes with hyperglycemia due to steroids, improved. She did not require insulin. On decreased metformin due to lactic acidosis and diarrhea. 9. Obstructive sleep apnea. 10.Essential hypertension with actually lower blood pressure. Her hydrochlorothiazide will remain on hold. 11.Deep venous thrombosis prophylaxis. She got Lovenox. REASON FOR ADMISSION: On the date of admission, this 65-year-old female with known history of some hives in the past from strawberries to [employer] pizza and Imodium had used Pepto-Bismol about 24 hours was the report prior to this event. The patient then that evening started breaking out in hives, so she took Benadryl, hives was not an unusual thing for her; however, then she was feeling like she might black out. Ambulance was called. She was found to be extremely hypotensive and was rushed to the emergency room and got several rounds of epinephrine, Solu-Medrol, IV Pepcid, and fluids and her condition overall was quite critical, but it was able to be stabilized to the point that she was significantly improved by the next morning. She got a 250 of Solu-Medrol and then Solu-Medrol was discontinued. Her hives gradually disappeared throughout the day. Then last evening, she had just a little bit of feeling of swelling in her face and got a dose of Benadryl. This morning that is gone. She is not having any trouble with throat swelling. She is not having any trouble with eating. Her breathing is good. Overall, she feels improved and is stable for discharge. PHYSICAL EXAMINATION: Vital Signs: Discharging vitals this morning did include a temperature of 97.2, pulse 82, blood pressure 98/50, respiratory rate 16, and O2 of 94% on room air. General: She is in no acute distress. Heart: Regular rate and rhythm. S1, S2 without murmur. Lungs: Sounds are clear to auscultation bilaterally without crackles or wheezes. Abdomen: Positive bowel sounds. Soft, nondistended, nontender. Extremities: Warm and dry. No edema. Mental Status: Alert and orientated x3. DISCHARGING LABS: Yesterday, her magnesium did come up to 2.5. Today, her sodium 135; potassium 3, she did get an extra 40 mEq this morning; chloride 102; bicarb 25; BUN 13; creatinine 0.6; glucose 165. White count normal at 7.3, hemoglobin 11.7, and platelets 204. DISCHARGE PLANS AND INSTRUCTIONS: She will follow up with Dr. Castellano next week in the clinic on assuming that her COVID-19 test remains negative and she will have her followup lab work for the low potassium as well as her regular diabetes labs and a magnesium level. She will get her COVID testing all done through [facility]. She will check her blood pressure at home and if it is under 100, she will not take her lisinopril. She will also not take lisinopril if she feels lightheaded and her hydrochlorothiazide will remain on hold. She will go home on potassium 20 mEq daily as she previously took only over the counter. She may continue to use Pepcid 10 to 20 mg daily for the next 2 weeks to help with histamines. She was also given a script for 20 mg daily for 5 days of prednisone, but instructed that she should not need to use this unless she notices any slight swelling or hive symptoms; however, if she does get hives, she will use her EpiPen and dial 911. The patient will resume metformin on discharge, but we discussed doing it just once daily. She is also on the Rybelsus and Jardiance. She is having some hard time tolerating the Rybelsus, even the 3 mg dose gave her some issues, but she is willing to stick it out and try it for another 2 months since she has pills on hand. We did discuss that if there were important days and she did not want to have too much of a stomach upset, she could skip it that day. MKA: 07/29/2021 15:12:27 MODL: 07/29/2021 22:29:14 /[id number]
[2021-07-30] MEDS ORDERED: Lisinopril 5 MG Tab PO SCH (08:00)
== END 2021-07-29 09:55 | disposition home or self-care (01) | DRG 811 ==
LOC: VM.ED 00:30 → VM.MS 02:34
PROVIDERS: ADMIT Family Medicine; ATTEND Internal Medicine
DX: T88.6XXA Anaphylactic reaction due to adverse effect of correct drug or medicament properly administered, initial encounter (principal); T47.6X5A Adverse effect of antidiarrheal drugs, initial encounter; Y83.9 Surgical procedure, unspecified as the cause of abnormal reaction of the patient, or of later complication, without mention of misadventure at the time of the procedure; R19.7 Diarrhea, unspecified; E87.6 Hypokalemia; E83.42 Hypomagnesemia; E83.51 Hypocalcemia; E87.2 Acidosis; E11.65 Type 2 diabetes mellitus with hyperglycemia; T38.0X5A Adverse effect of glucocorticoids and synthetic analogues, initial encounter; G47.33 Obstructive sleep apnea (adult) (pediatric); I10 Essential (primary) hypertension; I95.9 Hypotension, unspecified; K21.9 Gastro-esophageal reflux disease without esophagitis; E78.5 Hyperlipidemia, unspecified; E78.1 Pure hyperglyceridemia; Z20.822 Contact with and (suspected) exposure to COVID-19; Z79.899 Other long term (current) drug therapy; Z79.82 Long term (current) use of aspirin; Z86.16 Personal history of COVID-19; Z88.8 Allergy status to other drugs, medicaments and biological substances; Z88.5 Allergy status to narcotic agent
CPT/HCPCS: 36415; 80048; 80053; 82947; 83605; 83735; 85025; 85610; 85730; 86140; 93005; 94640; 96372; 96374; 96375; 99284; 99285-25; A9270-GY; J0171; J1200; J1650; J1815-GY; J2930; J3475; J3480; J3490; J7030; J7512; J7613-GY; U0002

== ENCOUNTER 2021-08-09 18:04 | Emergency (ER) | payer BC ==
[2021-08-09] MEDS ORDERED: Sodium Chloride 0.9% 10 ML Syringe FLUSH PRN (18:24)
[2021-08-09] MEDS ORDERED: Sodium Chloride 0.9% 1,000 ML IV ONE ×2 (18:24→19:31)
[2021-08-09] MEDS ORDERED: Acetaminophen 325 MG Tab PO ONE (18:33)
[2021-08-09] MEDS ORDERED: Ondansetron 4 MG/2 ML SDV IVPUSH ONE (18:42)
--- NOTE | 2021-08-09 18:48 | EDM.PDOC ---
ED HPI GENERAL MEDICAL PROBLEM - General Chief Complaint: Gastrointestinal Problem Stated Complaint: DIARRHEA Time Seen by Provider: 08/09/21 18:30 Source of Information: Reports: Patient, Family History Limitations: Reports: No Limitations - History of Present Illness INITIAL COMMENTS - FREE TEXT/NARRATIVE: Patient presents to the ED with profuse diarrhea today. She states she has always struggled with some daily after her cholecystectomy and had c diff, but this is different. She has been nauseated, barely drinking and had greater than 15 watery brown stools today. No recent travel, no bad food ingestion. REcently was hospitalized with severe allergic reaction to pepto bismal but no antibiotics given. SHe is on a acid reducing medication daily. She did not feel fevered or chilled at home. Her grandson has had COVID in the last couple of weeks and she was exposed to him but her covid testing has been negative. No sick contacts. Abdomen is crampy but not painful. no black or bloody stools, comes to the ED with her spouse Onset: Today Onset Time: 09:10 Abdomen Pain Score (Numeric/FACES): 1 - Related Data Allergies Allergy/AdvReac Type Severity Reaction Status Date / Time bismuth subsalicylate Allergy Severe Anaphylactic Verified 08/09/21 18:19 [From Pepto-Bismol] Shock loperamide [From Imodium A-D] Allergy Severe Hives Verified 08/09/21 18:19 doxycycline Allergy Rash Verified 08/09/21 18:19 Sulfa (Sulfonamide Allergy Rash Verified 08/09/21 18:19 Antibiotics) codeine AdvReac Vomiting Verified 08/09/21 18:19 propoxyphene napsylate AdvReac Vomiting Verified 08/09/21 18:19 [From Darvocet-N] Home Meds: Home Meds Aspirin [Mark Chewable Aspirin] 81 mg PO DAILY 11/21/14 [History] Lisinopril 5 mg PO DAILY 11/21/14 [History] Pravastatin [Pravachol] 10 mg PO BEDTIME 11/21/14 [History] metFORMIN HCl [Metformin HCl] 1,000 mg PO BID 11/21/14 [History] Calcium Carbonate [Calcium] 600 mg PO DAILY 08/01/16 [History] Cyclobenzaprine [Flexeril] 10 mg PO TID PRN 08/26/20 [History] Famotidine [Pepcid] 10 mg PO ASDIRECTED PRN 04/14/20 [History] Omeprazole 20 mg PO DAILY 04/14/20 [History] Empagliflozin [Jardiance] 25 mg PO DAILY 07/28/21 [History] Levothyroxine Sodium [Synthroid] 50 mcg PO BEDTIME 07/28/21 [History] Non-Formulary Medication [NF Drug] 1 spray .XX DAILY 07/28/21 [History] Semaglutide [Rybelsus] 7 mg PO ACBREAKFAST 07/28/21 [History] EPINEPHrine [Adrenalin] 0.3 mg IM ONETIME PRN amp 07/29/21 [Rx] Potassium Chloride [Klor-Con 10] 20 meq PO WITHBREAKFAST #30 tab.er 07/29/21 [Rx] predniSONE [Prednisone] 20 mg PO DAILY #5 tablet 07/29/21 [Rx] Amoxicillin/Potassium Clav [Augmentin 875-125 Tablet] 1 each PO BID 10 Days #20 tablet 08/09/21 [Rx] Past Medical History HEENT History: Reports: Sinusitis Cardiovascular History: Reports: High Cholesterol, Hypertension Respiratory History: Reports: Sleep Apnea Gastrointestinal History: Reports: GERD Other Gastrointestinal History: c diff Other Genitourinary History: cystitis Musculoskeletal History: Reports: Back Pain, Chronic Other Musculoskeletal History: osteopenia. planter fasciitis of left foot Endocrine/Metabolic History: Reports: Diabetes, Type II Dermatologic History: Reports: Other (See Below) Other Dermatologic History: hives - Infectious Disease History Infectious Disease History: Reports: C-Difficile - Past Surgical History HEENT Surgical History: Reports: Adenoidectomy, Tonsillectomy Other Female Surgeries/Procedures: colposcopy with endo curette Social & Family History - Family History Cardiac: Reports: Bypass, Heart Valve Replacement, High Cholesterol, Hypertension, NM - Tobacco Use Tobacco Use Status *Q: Unknown Ever Used Tobacco - Recreational Drug Use Recreational Drug Use: No Drug Use in Last 12 Months: No ED ROS GENERAL - Review of Systems Review Of Systems: See Below Constitutional: Reports: Weakness, Fatigue, Decreased Appetite. Denies: Fever, Chills HEENT: Reports: No Symptoms. Denies: Ear Pain, Throat Pain, Throat Swelling Respiratory: Reports: No Symptoms. Denies: Shortness of Breath, Cough Cardiovascular: Denies: Chest Pain, Claudication, Dyspnea on Exertion GI/Abdominal: Reports: Anorexia, Diarrhea, Decreased Appetite, Nausea. Denies: Black Stool, Bloody Stool, Hematemesis, Hematochezia, Vomiting Musculoskeletal: Reports: No Symptoms Skin: Reports: No Symptoms Neurological: Reports: No Symptoms. Denies: Confusion, Dizziness Psychiatric: Reports: No Symptoms ED EXAM, GI/ABD - Physical Exam Exam: See Below Exam Limited By: No Limitations General Appearance: Alert, WD/WN, No Apparent Distress Eyes: Bilateral: EOMI Ears: Normal External Exam, Hearing Grossly Normal Nose: Normal Inspection, Normal Mucosa Throat/Mouth: Normal Teeth, Normal Voice, No Airway Compromise, Other (mild dry mucous membranes) Neck: Normal Inspection, Supple, Non-Tender Respiratory/Chest: No Respiratory Distress, Lungs Clear, Normal Breath Sounds, No Accessory Muscle Use Cardiovascular: Normal Peripheral Pulses, Regular Rate, Rhythm, No Murmur GI/Abdominal Exam: Normal Bowel Sounds, Soft, Tender (minimal diffusely) Extremities: Normal Inspection, Normal Range of Motion, No Pedal Edema Neurological: Alert, Oriented, CN II-XII Intact, Normal Cognition Course - Vital Signs Last Recorded V/S: Last Vital Signs Temp 38.2 C H 08/09/21 18:46 Pulse 113 H 08/09/21 18:10 Resp 18 08/09/21 18:10 BP 116/68 08/09/21 18:10 Pulse Ox 95 08/09/21 18:10 - Orders/Labs/Meds Orders: Active Orders 24 hr Category Date Time Status Blood Glucose Check, Bedside [RC] ONETIME Care 08/09/21 20:38 Active Sodium Chloride 0.9% [Saline Flush] Med 08/09/21 18:24 Active 10 ml FLUSH ASDIRECTED PRN Peripheral IV Insertion Adult [OM.PC] Routine Oth 08/09/21 18:24 Ordered Medication Orders Sodium Chloride (Sodium Chloride 0.9% 10 Ml Syringe) 10 ml FLUSH ASDIRECTED PRN PRN Reason: Keep Vein Open Labs: Laboratory Tests 08/09/21 08/09/21 08/09/21 Range/Units 18:35 18:35 18:35 WBC 17.1 H (4.0-10.0) x10^3/uL RBC 5.58 H (4.00-5.50) x10^6/uL Hgb 15.7 (12.0-16.0) g/dL Hct 45.0 (33.0-47.0) % MCV 80.6 (78.0-93.0) fL MCH 28.1 (26.0-32.0) pg MCHC 34.9 (32.0-36.0) g/dL RDW Coeff of Yaw 15.2 H (10.0-15.0) % Plt Count 246 (130-400) x10^3/uL Immature Gran % (Auto) 0.20 (0.00-0.43) % Neut % (Auto) 79.9 (50.0-80.0) % Lymph % (Auto) 13.4 L (25.0-50.0) % Traverse % (Auto) 4.9 (2.0-11.0) % Eos % (Auto) 1.5 (0.0-4.0) % Baso % (Auto) 0.1 L (0.2-1.2) % Neut # (Auto) 13.6 H (1.8-7.7) x10^3/uL Lymph # (Auto) 2.3 (1.0-4.8) x10^3/uL Traverse # (Auto) 0.8 (0.0-0.8) x10^3/uL Eos # (Auto) 0.3 (0.0-0.5) x10^3/uL Baso # (Auto) 0.0 (0.0-0.2) x10^3/uL Immature Gran # (Auto) 0.04 (0.00-0.07) x10^3/uL Sodium 136 (136-145) mmol/L Potassium 3.7 (3.5-5.1) mmol/L Chloride 101 (98-107) mmol/L Carbon Dioxide 18 L (21-32) mmol/L Anion Gap 20.7 H (5-15) mmol/L BUN 25 H (7-18) mg/dL Creatinine 0.7 (0.55-1.02) mg/dL Est Cr Clr Drug Dosing TNP Estimated GFR (MDRD) > 60 Glucose 170 H (70-99) mg/dL POC Glucose (70-99) mg/dL Lactic Acid 1.0 (0.4-2.0) mmol/L Calcium 8.6 D (8.5-10.1) mg/dL Corrected Calcium 8.7 (8.5-10.1) mg/dL Total Bilirubin 0.8 (0.2-1.0) mg/dL AST 18 (15-37) U/L ALT 41 (14-59) U/L Alkaline Phosphatase 63 (46-116) U/L C-Reactive Protein 0.6 (<=0.9) mg/dL Total Protein 7.3 (6.4-8.2) g/dL Albumin 3.9 (3.4-5.0) g/dL Globulin 3.4 Albumin/Globulin Ratio 1.15 Lipase 182 (73-393) U/L Urine Color (YELLOW) Urine Appearance (CLEAR) Urine pH (5.0-8.0) Ur Specific [place] Urine Protein (NEGATIVE) mg/dL Urine Glucose (UA) (NEGATIVE) mg/dL Urine Ketones (NEGATIVE) mg/dL Urine Occult Blood (NEGATIVE) Urine Nitrite (NEGATIVE) Urine Bilirubin (NEGATIVE) Urine Urobilinogen (0.2) EU/dL Ur Leukocyte Esterase (NEGATIVE) SARS-CoV-2 RNA (RK) (NEGATIVE) 08/09/21 08/09/21 08/09/21 Range/Units 18:59 19:45 20:43 WBC (4.0-10.0) x10^3/uL RBC (4.00-5.50) x10^6/uL Hgb (12.0-16.0) g/dL Hct (33.0-47.0) % MCV (78.0-93.0) fL MCH (26.0-32.0) pg MCHC (32.0-36.0) g/dL RDW Coeff of Yaw (10.0-15.0) % Plt Count (130-400) x10^3/uL Immature Gran % (Auto) (0.00-0.43) % Neut % (Auto) (50.0-80.0) % Lymph % (Auto) (25.0-50.0) % Traverse % (Auto) (2.0-11.0) % Eos % (Auto) (0.0-4.0) % Baso % (Auto) (0.2-1.2) % Neut # (Auto) (1.8-7.7) x10^3/uL Lymph # (Auto) (1.0-4.8) x10^3/uL Traverse # (Auto) (0.0-0.8) x10^3/uL Eos # (Auto) (0.0-0.5) x10^3/uL Baso # (Auto) (0.0-0.2) x10^3/uL Immature Gran # (Auto) (0.00-0.07) x10^3/uL Sodium (136-145) mmol/L Potassium (3.5-5.1) mmol/L Chloride (98-107) mmol/L Carbon Dioxide (21-32) mmol/L Anion Gap (5-15) mmol/L BUN (7-18) mg/dL Creatinine (0.55-1.02) mg/dL Est Cr Clr Drug Dosing Estimated GFR (MDRD) Glucose (70-99) mg/dL POC Glucose 121 H (70-99) mg/dL Lactic Acid (0.4-2.0) mmol/L Calcium (8.5-10.1) mg/dL Corrected Calcium (8.5-10.1) mg/dL Total Bilirubin (0.2-1.0) mg/dL AST (15-37) U/L ALT (14-59) U/L Alkaline Phosphatase (46-116) U/L C-Reactive Protein (<=0.9) mg/dL Total Protein (6.4-8.2) g/dL Albumin (3.4-5.0) g/dL Globulin Albumin/Globulin Ratio Lipase (73-393) U/L Urine Color Yellow (YELLOW) Urine Appearance Clear (CLEAR) Urine pH 5.0 (5.0-8.0) Ur Specific [place] 1.010 Urine Protein Negative (NEGATIVE) mg/dL Urine Glucose (UA) 500 H (NEGATIVE) mg/dL Urine Ketones 40 H (NEGATIVE) mg/dL Urine Occult Blood Negative (NEGATIVE) Urine Nitrite Negative (NEGATIVE) Urine Bilirubin Negative (NEGATIVE) Urine Urobilinogen 0.2 (0.2) EU/dL Ur Leukocyte Esterase Negative (NEGATIVE) SARS-CoV-2 RNA (RK) Negative (NEGATIVE) Meds: Medications Generic Name Dose Route Start Last Admin Trade Name Freq PRN Reason Stop Dose Admin Sodium Chloride 10 ml 08/09/21 18:24 Sodium Chloride 0.9% 10 Ml Syringe FLUSH ASDIRECTED PRN Keep Vein Open Discontinued Medications Generic Name Dose Route Start Last Admin Trade Name Freq PRN Reason Stop Dose Admin Acetaminophen 650 mg 08/09/21 18:33 08/09/21 18:46 Acetaminophen 325 Mg Tab PO 08/09/21 18:34 650 mg NOW ONE Administration Sodium Chloride 1,000 mls @ 999 mls/hr 08/09/21 18:24 08/09/21 18:46 Normal Saline IV 08/09/21 19:24 999 mls/hr ONETIME ONE Administration Sodium Chloride 1,000 mls @ 999 mls/hr 08/09/21 19:31 Normal Saline IV 08/09/21 20:31 ONETIME ONE Ampicillin Sodium/Sulbactam 100 mls @ 200 mls/hr 08/09/21 20:37 08/09/21 21:04 Sodium 3 gm/ Sodium Chloride IV 08/09/21 21:06 200 mls/hr ONETIME ONE Administration Iopamidol 100 ml 08/09/21 20:06 08/09/21 20:09 Iopamidol 612 Mg/Ml 100 Ml Bottle IVPUSH 08/09/21 20:07 100 ml ONETIME ONE Administration Ondansetron HCl 4 mg 08/09/21 18:42 08/09/21 18:49 Ondansetron 4 Mg/2 Ml Sdv IVPUSH 08/09/21 18:43 4 mg ONETIME ONE Administration - Radiology Interpretation Free Text/Narrative:: ct abdomen and pelvis with mild enterocolitis, large dilated stomach with large amount of fluid in it. interpreted by radiology - Re-Assessments/Exams Free Text/Narrative Re-Assessment/Exam: 08/09/21 18:48 Patient presents with fever, diarrhea, abdominal cramping and nausea with recent covid 19 exposure. Will give her iv fluids, zofran 4 mg IVP and tylenol 650 mg po. will check labs, urine and covid 19 rapdi test. 08/09/21 19:35 nausea is a bit better, asking for water to sip on, will hold on that for now. leukocytosis ad anion gap. Will give another liter of fluids and check ct abdomen and pelvis with IV contrast 08/09/21 21:04 Discussion with the patient about CT findings. Concern for gastroparesis, needs GI follow up. enterocolitis on CT may be due to viral illness due to sudden onset and less than 24 hours, but has leukocytosis. Could be reactive but given fever and recent illness will give her a dose of unisyn, 3 gram iv. Has zofran at home. Will use. Encourage Pedialyte and increase magnesium and potassium in diet due to Gi losses. Needs to restart her probiotic. REturn if worsening, otherwise will have her follow up with PCP and get to GI for consultation. start on augmentin, has allergy to immodium, concern for reaction to lomotil. 08/09/21 21:52 recheck of the vital signs, 130/68, 98%, 95 heart rate , temp 97.9, discharge home. Departure - Departure Time of Disposition: 21:07 Disposition: Home, Self-Care 01 Condition: Good Clinical Impression: Colitis, Diarrhea, Delayed gastric emptying - Discharge Information *PRESCRIPTION DRUG MONITORING PROGRAM REVIEWED*: Not Applicable *COPY OF PRESCRIPTION DRUG MONITORING REPORT IN PATIENT MARILYNN: Not Applicable Prescriptions: Amoxicillin/Potassium Clav [Augmentin 875-125 Tablet] 1 each PO BID 10 Days #20 tablet Instructions: Hypomagnesemia, Food Choices to Help Relieve Diarrhea, Adult, Potassium Content of Foods, Colitis Referrals: Eva Castellano, [Primary Care Provider] - Forms: ED Department Discharge Additional Instructions: You are given a dose of antibiotics for colitis tonight. Your white blood cell count is elevated but other than the bowel inflammation the work up was negative for infection. You have delayed emptying of your stomach and need to follow up with GI for this and the loose stools. Use the zofran you have at home every 6 hours for nausea and it will cause some constipation. If the loose stools continue, consider stool testing. Return to the ED for dehydration, worsening problems over the rest of the week, otherwise follow up with PCP and gastroenterology. Restart your probiotic and take daily. Increase magnesium in the diet and potassium in the diet as you will have lower levels due to diarrhea, but they are not low yet. Take the augmentin until gone. Control fever with tylenol. use pedialyte as a electrolyte solution to drink Sepsis Event Note (ED) - Focused Exam Vital Signs: Vital Signs Temp Temp Pulse Resp BP Pulse Ox 08/09/21 18:46 38.2 C H 12/21/21 18:10 38.2 C H 113 H 18 116/68 95 - My Orders Last 24 Hours: My Active Orders 08/09/21 18:24 Sodium Chloride 0.9% [Saline Flush] 10 ml FLUSH ASDIRECTED PRN Peripheral IV Insertion Adult [OM.PC] Routine 08/09/21 20:38 Blood Glucose Check, Bedside [RC] ONETIME - Assessment/Plan Last 24 Hours: My Active Orders 08/09/21 18:24 Sodium Chloride 0.9% [Saline Flush] 10 ml FLUSH ASDIRECTED PRN Peripheral IV Insertion Adult [OM.PC] Routine 08/09/21 20:38 Blood Glucose Check, Bedside [RC] ONETIME
[2021-08-09 19:00] LABS: CHLORIDE,CL 101 mmol/L (98-107); SODIUM,NA 136 mmol/L (136-145)
[2021-08-09 19:05] LABS: ANION GAP 20.7 mmol/L (5-15)
[2021-08-09] MEDS ORDERED: Iopamidol 612 MG/ML 100 ML Bottle IVPUSH ONE (20:06)
--- NOTE | 2021-08-09 20:19 | CT ---
[id number] CT/CT Abdomen Pelvis W IV EXAM: CT Abdomen Pelvis W IV INDICATION: DIARRHEA, FEVER, LEUKOCYTOSIS, PAIN COMPARISON: None. DISCUSSION: Small sliding type hiatus hernia. The stomach is fluid-filled and mildly distended, correlate with recent ingestion. Multiple small bowel loops are fluid-filled and mildly distended with no transition point. These findings are suggestive of underlying enteritis. The colon demonstrates scattered diverticula. There is mild mural thickening in the distal colon which may relate to underlying colitis. No pneumatosis, free air, free fluid or abscess. Hepatic steatosis. The couple of subcentimeter hepatic hypodensities are too small to further characterize, but are of doubtful clinical significance. Cholecystectomy. Scattered degenerative changes in the spine. The osseous structures are otherwise unremarkable. The pancreas, spleen, adrenal glands, kidneys and appendix are unremarkable. No adenopathy. IMPRESSION: 1. Mild enterocolitis. Maldonado Vaughn MD [id number]/09/[id number] Thank you for allowing us to participate in the care of your patient.
[2021-08-09] MEDS ORDERED: Ampicillin/Sulbactam Na 3 GM in Sodium Chloride 0.9% 100 ML IV ONE (20:37)
[2021-08-09 22:33] VITALS: BP 130/68; PULSE 95
== END 2021-08-09 22:06 | disposition home or self-care (01) ==
LOC: VM.ED 18:04
DX: K52.9 Noninfective gastroenteritis and colitis, unspecified (principal); K30 Functional dyspepsia; R19.7 Diarrhea, unspecified; I10 Essential (primary) hypertension; E78.00 Pure hypercholesterolemia, unspecified; K21.9 Gastro-esophageal reflux disease without esophagitis; E11.9 Type 2 diabetes mellitus without complications; Z79.82 Long term (current) use of aspirin; Z79.899 Other long term (current) drug therapy; Z79.84 Long term (current) use of oral hypoglycemic drugs; Z20.822 Contact with and (suspected) exposure to COVID-19
CPT/HCPCS: 36415; 74177; 80053; 81003; 82947; 83605; 83690; 85025; 86140; 87635; 96365; 96375; 99284; A9270; J0295; J2405; J7030; Q9967; U0002

== ENCOUNTER 2024-02-11 01:15 | Emergency (ER) | payer MEDICARE, BC ==
[2024-02-11] MEDS: methylPREDNISolone Sodium Succinate 125 MG/2 ML SDV IVPUSH ONE (01:35)
[2024-02-11] MEDS: diphenhydrAMINE 50 MG/ML SDV IVPUSH ONE (01:35)
[2024-02-11 01:42] VITALS: PULSE 116
[2024-02-11 01:53] VITALS: BP 127/55
== END 2024-02-11 02:08 | disposition home or self-care (01) ==
LOC: VM.ED 01:15
DX: T88.6XXA Anaphylactic reaction due to adverse effect of correct drug or medicament properly administered, initial encounter (principal); T38.3X5A Adverse effect of insulin and oral hypoglycemic [antidiabetic] drugs, initial encounter; I10 Essential (primary) hypertension; E78.00 Pure hypercholesterolemia, unspecified; K21.9 Gastro-esophageal reflux disease without esophagitis; E11.9 Type 2 diabetes mellitus without complications; Z79.84 Long term (current) use of oral hypoglycemic drugs; Z79.82 Long term (current) use of aspirin; Z79.2 Long term (current) use of antibiotics; Z79.899 Other long term (current) drug therapy; Z88.2 Allergy status to sulfonamides; Z88.1 Allergy status to other antibiotic agents; Z88.8 Allergy status to other drugs, medicaments and biological substances
CPT/HCPCS: 96374; 96375; 99283; J1200; J2919